=== PATIENT | female | born 1945 | race Caucasian/White ===

== ENCOUNTER → 2017-10-13 12:39 | Outpatient (CLI) | payer MEDICARE, MEDICAID, SELFPAY ==
--- NOTE | 2017-10-13 | DI.ECHO.S_ITS ---
[facility]---------+ [facility] +---------+ : : [address] : [place] : : : : [id number] : : : : Phone: [phone]+ Echocardiogram Report + + :Name: WILLOW NUGENT Study Date: 10/13/2017 Height: 61 in : :[facility] Exam Location: [facility] Weight: 164 lb : : Gender: Female BSA: 1.7 m2 : :: 1945 Age: 72 yrs BP: 145/90 mmHg: :Reason For Study: HYPERTENSION : : Performed By: Bretn Sarabia : :Referring: LULU DAI : + + Interpretation Summary Normal sinus rhythm. Normal LV size, wall thickness. There is distal septal hypokinesis and apical hypokinesis. Otherwise normal wall motion. There is normal LV systolic function. EF is 60-65%. Mild LA enlargement. There is aortic sclerosis without stenosis. No prior study available for comparison. Procedure: A two-dimensional transthoracic echocardiogram with color flow and Doppler was performed. The study quality was technically adequate. There is no prior echocardiogram noted for this patient. The patient was supine during the exam. The patient was in normal sinus rhythm during the exam. Left Ventricle: The left ventricle is normal in size. There is normal left ventricular wall thickness. The ejection fraction is estimated to be 60-65%. Right Ventricle: The right ventricle is normal in size and function. Atria: The left atrium is mildly dilated. Right atrial size is normal. The interatrial septum is intact with no evidence for an atrial septal defect. Mitral Valve: The mitral valve is normal in structure and function. There is mild mitral annular calcification. There is trace mitral regurgitation. Aortic Valve: The aortic valve opens well. There is mild aortic regurgitation. Tricuspid Valve: The tricuspid valve is normal in structure and function. There is trace tricuspid regurgitation. The right ventricular systolic pressure is estimated at 23 mmHg assuming a right atrial pressure of 3 mm Hg. Pulmonic Valve: The pulmonic valve is normal in structure and function. There is trace pulmonic regurgitation. Great Vessels: The aortic root is normal size. The ascending aorta could not be visualized. The aortic arch is mildly enlarged. The pulmonary artery is normal size. The IVC is of normal diameter and collapses greater than 50% with a sniff. This suggests a low right atrial pressure of 3 mm Hg. Pericardium/ Pleura There is no pericardial effusion. There is no pleural effusion. MMode/2D Measurements & Calculations LVIDd: 2.8 cm LVOT diam: 2.0 cm LVIDs: 1.8 cm Ao root diam: 2.9 cm FS: 37.7 % Aortic Jxn: 2.0 cm IVSd: 1.1 cm Ao Arch Diam (Prox Trans): 3.3 cm LVPWd: 1.1 cm LV ponce. diameter/BSA (cm/m^2): 1.6 LV sys. diameter/BSA (cm/m^2): 1.0 LA A2 area: 18.6 cm2 RA long axis: 5.0 cm LA A4 area: 20.6 cm2 RA area: 8.6 cm2 LA length (vol): 5.5 cm RA vol: 12.5 ml LA vol: 59.4 ml RA : 7.2 ml/m2 LA vol index: 34.2 ml/m2 IVC diam: 1.2 cm Doppler Measurements & Calculations Ao V2 max: 159.7 cm/sec LVOT Max Abraham: 100.1 cm/sec Ao V2 mean: 108.2 cm/sec LV V1 max P.0 mmHg Ao max P.2 mmHg LV V1 VTI: 25.3 cm Ao mean P.3 mmHg PERLITA(I,D): 2.7 cm2 Ao V2 VTI: 30.6 cm PERLITA(V,D): 2.0 cm2 sev ratio: 0.83 PERLITA indexed to BSA (cm^2/m^2): 1.6 MV E max abraham: 66.1 cm/sec TR max abraham: 224.4 cm/sec MV A max abraham: 81.1 cm/sec TR max P.1 mmHg MV E/A: 0.82 PA V2 max: 77.6 cm/sec Med Peak E' Abraham: 4.9 cm/sec PA V2 mean: 53.6 cm/sec E/E' med: 13.6 PA mean P.3 mmHg Lat Peak E' Abraham: 5.5 cm/sec PA pr(Accel): 41.6 mmHg E/E' lat: 12.1 PA Accel Time: 0.08 sec E/e' average: 12.9 MV dec time: 0.41 sec Pulm A Revs Abraham: 25.3 cm/sec Reading Physician:07:28 PM
== END ==
PROVIDERS: Visit Provider Hospitalist
DX: I35.1 Nonrheumatic aortic (valve) insufficiency (principal); I10 Essential (primary) hypertension
CPT/HCPCS: 93306